=== PATIENT | male | born 1970 | race Caucasian/White ===

== ENCOUNTER 2019-12-22 18:30 | Emergency (ER) | payer SELFPAY ==
[~2019-12-22] VITALS: Ht 188 cm; Wt 108.9 kg
[2019-12-22] MEDS ORDERED: cloNIDine HCL 0.1 MG TAB PO ONE (18:45)
[2019-12-22] MEDS ORDERED: LABETALOL HCL 5 MG/ML 4ML SYRINGE IV ONE ×2 (21:15→22:45)
[2019-12-22] MEDS ORDERED: LABETALOL HCL 5 MG/ML ML 20ML VIAL IV ONE (21:30)
[2019-12-22 23:10] VITALS: BP 124/87
== END 2019-12-22 23:27 | disposition home or self-care (01) ==
LOC: ER 18:32
DX: S46.912A Strain of unspecified muscle, fascia and tendon at shoulder and upper arm level, left arm, initial encounter (principal); I16.0 Hypertensive urgency; X58.XXXA Exposure to other specified factors, initial encounter; Y93.89 Activity, other specified; Y99.8 Other external cause status; Y92.89 Other specified places as the place of occurrence of the external cause
CPT/HCPCS: 73020; 73030; 96374; 96376